=== PATIENT | male | born 2000 | race Two or more races ===

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

== ENCOUNTER 2020-01-11 13:22 | Emergency (ER) | payer MEDICAID ==
[~2020-01-11] VITALS: Ht 172.7 cm; Wt 92.1 kg
[2020-01-11 13:39] VITALS: BP 141/84
== END 2020-01-11 15:16 | disposition home or self-care (01) ==
LOC: ER 13:22
DX: F41.9 Anxiety disorder, unspecified (principal); J45.909 Unspecified asthma, uncomplicated; F12.10 Cannabis abuse, uncomplicated; Z76.0 Encounter for issue of repeat prescription

== ENCOUNTER 2020-01-16 14:39 | Emergency (ER) | payer MEDICAID ==
[~2020-01-16] VITALS: Ht 172.7 cm; Wt 92.1 kg
[2020-01-16 14:47] VITALS: BP 129/96
== END 2020-01-16 16:27 | disposition home or self-care (01) ==
LOC: ER 14:39
DX: K60.2 Anal fissure, unspecified (principal); K59.00 Constipation, unspecified; F12.10 Cannabis abuse, uncomplicated; J45.909 Unspecified asthma, uncomplicated
CPT/HCPCS: 74018

== ENCOUNTER 2022-04-28 14:22 | Emergency (ER) | payer MEDICAID ==
[~2022-04-28] VITALS: Ht 172.7 cm; Wt 95.6 kg
[2022-04-28 15:01] VITALS: BP 146/91
[2022-04-28] MEDS ORDERED: IBUP800T27 PO (15:31)
[2022-04-28] MEDS ORDERED: METH750T22 PO (15:31)
== END 2022-04-28 15:41 | disposition home or self-care (01) ==
LOC: ER 14:22
DX: S16.1XXA Strain of muscle, fascia and tendon at neck level, initial encounter (principal); S20.212A Contusion of left front wall of thorax, initial encounter; J45.909 Unspecified asthma, uncomplicated; F12.10 Cannabis abuse, uncomplicated; V43.52XA Car driver injured in collision with other type car in traffic accident, initial encounter; Y93.89 Activity, other specified; Y92.488 Other paved roadways as the place of occurrence of the external cause; Y99.8 Other external cause status
CPT/HCPCS: 71101; 72040